=== PATIENT | male | born 1995 | race Caucasian/White ===

== ENCOUNTER 2017-08-21 23:36 | Emergency (ER) | payer OTHER ==
[~2017-08-21] VITALS: Ht 177.8 cm; Wt 77.1 kg
[2017-08-22] MEDS ORDERED: LIDOCAINE 1% INJ 20 ML 20 ML VIAL INJ ONE (00:30)
[2017-08-22] MEDS ORDERED: LIDOCAINE 1% INJ 50 ML (XYLOCAINE) VIAL IJ ONE (00:45)
[2017-08-22] MEDS ORDERED: TRIM/SULFAMETH 160/800 (SEPTRA DS) TAB PO ONE (01:45)
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
[2017-08-22] MEDS ORDERED: SULF1TAB35 PO (01:50)
== END 2017-08-22 02:02 | disposition home or self-care (01) ==
LOC: ER 23:42
DX: S06.0X1A Concussion with loss of consciousness of 30 minutes or less, initial encounter (principal); S61.011A Laceration without foreign body of right thumb without damage to nail, initial encounter; S30.1XXA Contusion of abdominal wall, initial encounter; Z77.22 Contact with and (suspected) exposure to environmental tobacco smoke (acute) (chronic); V80.018A Animal-rider injured by fall from or being thrown from other animal in noncollision accident, initial encounter
CPT/HCPCS: 12042